=== PATIENT | female | born 1990 | race Caucasian/White ===

== ENCOUNTER 2018-05-19 23:58 | Emergency (ER) | payer OTHER, SELFPAY ==
[2018-05-19 23:59] VITALS: BP 135/89; PULSE 91; RESP 15; TEMP 37.6; O2SAT 95; BMI 29.2
[2018-05-20 00:30] VITALS: BP 133/84; PULSE 69; RESP 18; O2SAT 94
--- NOTE | 2018-05-20 00:31 | DI.RAD.S_ITS ---
PROCEDURE: XR CHEST 1V INDICATIONS: sepsis TECHNIQUE: One view of the chest was acquired. COMPARISON: None. FINDINGS: Surgical changes and devices: None. Lungs and pleura: No pleural effusions or pneumothorax. Lungs are clear. Mediastinum: Mediastinal contours appear normal. Heart size is normal. Bones and chest wall: No suspicious bony lesions. Overlying soft tissues appear unremarkable. IMPRESSION: No acute disease. Dictated by: Harvinder Contreras M.D. on 05/20/2018 at 7:31 Approved by: Harvinder Contreras M.D. on 05/20/2018 at 7:32
--- NOTE | 2018-05-20 00:31 | DI.US.S_ITS ---
PROCEDURE: US PELVIC COMPLETE INDICATIONS: fever, chills, pelvic pain, vag delivery 4 days ago TECHNIQUE: Real-time scanning was performed of the pelvic organs, with image documentation. Additional endovaginal scanning was necessary due to incomplete visualization of the adnexal and endometrial structures by transabdominal scanning. COMPARISON: None. FINDINGS: Preliminary report by [facility] Transabdominal scanning: Limited scanning through the kidneys shows no hydronephrosis. The kidneys measure 12.9 CM right and 12.0 CM left with moderate hydronephrosis in the right kidney, no visible stones. No pathologic free abdominal or pelvic fluid. Endovaginal scanning: Uterus: Uterus is enlarged consistent with status at 8.0 x 8.1 x 18.3 cm. uterine cavity contains echogenic material with no internal blood flow and is distended in the lower uterine segment by the diameter of 2.2 x 3.5 cm ovary is 6.2 cm length Ovaries: The right ovary is not well seen. The left ovary appears normal measuring 25 x 25 x 26 mm. IMPRESSION: 1. uterine enlargement. Distention of the endometrial cavity with retained blood products in the lower uterine segment. 2. Right ovary not seen. Left ovary is normal in size. 3. Moderate right hydronephrosis. 4. No free fluid Findings are concordant with the preliminary report. Dictated by: Jed Centeno M.D. on 05/20/2018 at 7:45 Approved by: Jed Centeno M.D. on 05/20/2018 at 7:53
[2018-05-20 00:40] LABS: Add Manual Diff / Slide Review NO; Basophils Percent Auto 1.2 % (0-2); Eosinophils Percent Auto 4.1 % (2-4); Hematocrit 31.9 % (36-46); Hemoglobin 10.7 g/dL (12.0-16.0); Lymphocytes Percent Auto 19.2 % (25-40); Mean Corpuscular HGB Conc 33.6 % (30-36); Mean Corpuscular Hemoglobin 28.6 PG (26-34); Mean Corpuscular Volume 85.2 fL (80-100); Neutrophils Absolute Auto 6300 /uL (3000-5900); Neutrophils Percent Auto 69.5 % (50-75); Platelet Count 389 X10^3/uL (150-400); Red Blood Cell Count 3.74 X10^6/uL (4.0-5.2); Red Cell Distribution Width 14.5 % (11.6-14.8)
[2018-05-20 00:47] LABS: BUN Creatinine Ratio 12.9 (6-22); Bilirubin Total 0.4 mg/dL (0.2-1.3); Blood Urea Nitrogen 9 mg/dL (7-17); Calcium 9.2 mg/dL (8.4-10.2); Carbon Dioxide 26 mmol/L (22-32); Chloride 102 mmol/L (98-107); Estimated Glomerular Filt Rate > 60.0 mL/min (>60); Glucose 86 mg/dL (70-100); HEMOLYSIS < 15 (0-50); Lactate (Lactic Acid) 1.4 mmol/L (0.7-2.1); Potassium 4.3 mmol/L (3.4-5.1); Sodium 139 mmol/L (137-145)
[2018-05-20] MEDS: CEFTRIAXONE 1 GM/50 ML FROZ.PIGGY IV (00:49)
--- NOTE | 2018-05-20 00:54 | ED.FEVER ---
HPI - Fever General Chief Complaint: Fever Stated Complaint: COLDNESS Time Seen by Provider: 05/20/18 00:00 Source: patient and EMS Mode of arrival: EMS Limitations: no limitations History of Present Illness HPI Narrative: 27-year-old female delivered vaginally 4 days ago at [facility]. Over the past day she has had increasing pelvic pain with some spotting as well as subjective fever and shaking chills. She has nausea but denies any vomiting. She is . She has been otherwise well and free of complaint MD complaint: fever Onset (ago): hour(s) Temperature Source: subjective Context: recent procedure Associated symptoms: chills and rigors Relieving factors: nothing Exacerbating factors: nothing Related Data Home Medications Medication Instructions Recorded Confirmed ibuprofen 400 mg PO TID #0 09/03/17 Previous Rx's Medication Instructions Recorded clindamycin HCl 300 mg PO Q6H #28 cap 08/31/17 amoxicillin-pot clavulanate 875 mg PO BID #14 tab 09/03/17 [Augmentin] cephalexin [Keflex] 500 mg PO QID 7 Days #28 cap 05/20/18 Allergies Allergy/AdvReac Type Severity Reaction Status Date / Time No Known Allergies Allergy Uncoded 02/09/18 12:48 Review of Systems Review of Systems All systems reviewed & are unremarkable except as noted in HPI and below Constitutional Reports chills, Reports fever(s), Denies lethargy and Denies weakness Eyes Denies change in vision, Denies eye discharge, Denies irritation and Denies loss of vision ENT Ears, Nose, Mouth, and Throat: Denies change in voice, Denies neck pain and Denies sore throat Cardiovascular Denies chest pain, Denies irregular heart rhythm, Denies lightheadedness, Denies palpitations, Denies dyspnea, Denies dyspnea on exertion and Denies orthopnea Respiratory Denies cough, Denies dyspnea, Denies dyspnea on exertion and Denies wheezing Gastrointestinal Gastrointestinal: Reports abdominal pain, Denies change in bowel habits, Denies diarrhea, Denies nausea and Denies vomiting Genitourinary Denies hematuria, Reports pelvic pain, Denies flank pain, Denies urinary incontinence and Denies urinary urgency Musculoskeletal Denies neck pain Integumentary/Breasts Denies pruritus, Denies erythema, Denies rash and Denies wounds Neurologic Denies confusion, Denies loss of vision and Denies weakness Psychiatric Denies anxiety, Denies confusion, Denies depression, Denies homicidal ideation and Denies suicidal ideation Endocrine Denies palpitations Hematologic/Lymphatic Denies easy bruising Allergic/Immunologic Denies wheezing [facility] Social History Smoking Status: Never smoker Exam Narrative Exam Narrative: Ill-appearing 27-year-old female, a bit pale on exam and clutching her suprapubic region Initial Vital Signs Initial Vital Signs: Vital Signs Temperature 99.7 F H 05/19/18 23:59 Pulse Rate 91 H 05/19/18 23:59 Respiratory Rate 15 05/19/18 23:59 Blood Pressure 135/89 H 05/19/18 23:59 Pulse Oximetry 95 05/19/18 23:59 Const General: cooperative, well developed and acute distress Nutritional Appearance: well nourished Orientation: alert, awake, oriented x3 and not confused HENMT Head: normocephalic and atraumatic Ears: external ears normal and TM's normal bilaterally Nose: external nose normal and No nasal discharge Face and sinus: sinuses nontender, face symmetric, no sinus tenderness and No dry mucous membranes Mouth: oral mucosae normal and moist mucous membranes Teeth and gingiva: dentition normal Throat: tonsils normal and uvula midline Eyes General: appearance normal, both eyes and all related structures Eyelids: eyelids normal Conjunctivae: conjunctivae normal Sclera: sclerae normal Pupils: PERRL EOM: EOM intact bilaterally Resp Effort & Inspection: normal respiratory effort, able to speak in complete sentences, no respiratory distress and no use of accessory muscles Auscultation: clear to auscultation bilaterally, no rales, no rhonchi and no wheezes Cardio Rate: regular rate Rhythm: regular rhythm Heart Sounds: no click, no gallops, no murmurs and no rubs Pulses: normal peripheral pulses GI Inspection: non-distended Palpation: soft, no hepatosplenomegaly, No guarding, No pulsatile mass and tender (Suprapubic tenderness) Auscultation: normal bowel sounds Skin General: no rashes or lesions noted Lesions: no lesions Neuro General: alert, awake and oriented x3 Cognition: normal cognition Speech: speech normal Extrem General: normal to inspection Right upper extremity: normal to inspection Psych Appearance: grossly normal Course Orders Ordered: ED Orders 05/20/18 00:01 Basic Metabolic Panel Stat Bilirubin Total Stat Complete Blood Count AUTO DIFF Stat Lactate (Lactic Acid) Stat Procalcitonin Stat 05/20/18 00:31 US pelvic complete Stat XR chest 1V Stat 05/20/18 01:00 Blood Culture Stat 05/20/18 02:28 Urine Culture Stat Urine Microscopic Stat Sodium Chloride (Normal Saline 0.9%) 2,177.25 mls @ 725.75 mls/hr 30 ml/kg infuse over 3 hr (2177.25 ml) IV CONT SOWMYA Discontinued Medications Ceftriaxone Sodium/Dextrose (Rocephin) 1 gm in 50 mls @ 100 mls/hr IV NOW ONE Stop: 05/20/18 01:00 Last Infusion: 05/20/18 02:00 Dose: 100 mls/hr Admin: 05/20/18 00:49 Dose: 100 mls/hr Consultations Consultation #1: 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 Paniagua has called back and after discussing patient presentation, ultrasound, blood work and urine we agreed that the patient is most concerning possible diagnosis endometriosis. She recommends Keflex and discharge with follow-up as an outpatient. She request the patient call the office in the morning for early follow-up next week. Time: 03:11 Vital Signs - 8 hr 05/19/18 23:59 05/20/18 00:30 05/20/18 01:43 Temperature 99.7 F H Pulse Rate 91 H 69 66 Respiratory Rate 15 18 15 Blood Pressure 135/89 H Blood Pressure [Right Arm] 133/84 H 103/64 Pulse Oximetry 95 94 97 MDM - Fever Lab Data Result diagrams: 05/20/18 00:01 05/20/18 00:01 Lab Results 05/20/18 05/20/18 05/20/18 Range/Units 00:01 00:01 00:01 WBC 9.0 (4.5-11.0) X10^3/uL RBC 3.74 L (4.0-5.2) X10^6/uL Hgb 10.7 L (12.0-16.0) g/dL Hct 31.9 L (36-46) % MCV 85.2 (80-100) fL MCH 28.6 (26-34) PG MCHC 33.6 (30-36) % RDW 14.5 (11.6-14.8) % Plt Count 389 (150-400) X10^3/uL Neut % (Auto) 69.5 (50-75) % Lymph % (Auto) 19.2 L (25-40) % [place] % (Auto) 6.0 (3-14) % Eos % (Auto) 4.1 H (2-4) % Baso % (Auto) 1.2 (0-2) % Neut # (Auto) 6300 H (9623-4839) /uL Sodium 139 (137-145) mmol/L Potassium 4.3 (3.4-5.1) mmol/L Chloride 102 (98-107) mmol/L Carbon Dioxide 26 (22-32) mmol/L BUN 9 (7-17) mg/dL Creatinine 0.70 (0.52-1.04) mg/dL Estimated GFR > 60.0 (>60) mL/min BUN/Creatinine Ratio 12.9 (6-22) Glucose 86 (70-100) mg/dL Lactate (0.7-2.1) mmol/L Calcium 9.2 (8.4-10.2) mg/dL Total Bilirubin 0.4 (0.2-1.3) mg/dL Procalcitonin < 0.05 (<0.5) ng/mL Urine RBC (0-5/HPF) Urine WBC (0-5/HPF) Ur Squamous Epith Cells Ur Transition Epith Cell (0-5/HPF) Urine Bacteria (None) Ur Culture Indicated? Micro UA Comment 05/20/18 05/20/18 Range/Units 00:01 02:28 WBC (4.5-11.0) X10^3/uL RBC (4.0-5.2) X10^6/uL Hgb (12.0-16.0) g/dL Hct (36-46) % MCV (80-100) fL MCH (26-34) PG MCHC (30-36) % RDW (11.6-14.8) % Plt Count (150-400) X10^3/uL Neut % (Auto) (50-75) % Lymph % (Auto) (25-40) % [place] % (Auto) (3-14) % Eos % (Auto) (2-4) % Baso % (Auto) (0-2) % Neut # (Auto) (2750-7554) /uL Sodium (137-145) mmol/L Potassium (3.4-5.1) mmol/L Chloride (98-107) mmol/L Carbon Dioxide (22-32) mmol/L BUN (7-17) mg/dL Creatinine (0.52-1.04) mg/dL Estimated GFR (>60) mL/min BUN/Creatinine Ratio (6-22) Glucose (70-100) mg/dL Lactate 1.4 (0.7-2.1) mmol/L Calcium (8.4-10.2) mg/dL Total Bilirubin (0.2-1.3) mg/dL Procalcitonin (<0.5) ng/mL Urine RBC 10-30/hpf H (0-5/HPF) Urine WBC 5-10/hpf H (0-5/HPF) Ur Squamous Epith Cells None seen Ur Transition Epith Cell 1-5/hpf (0-5/HPF) Urine Bacteria None seen (None) Ur Culture Indicated? Specimen cultured Micro UA Comment Not Reportable Imaging Data US Pelvic: Radiologist's impression: Heterogeneous material in the uterus most consistent with blood products. No evidence of retained products of conception, moderate hydronephrosis of the right kidney Discharge Plan Departure Patient Disposition: Home, Self-Care Clinical Impression: Acute endometritis, UTI (urinary tract infection) Instructions: DI for Endometritis Activity Restrictions/Additional Instructions: *You have been diagnosed with [ acute endometritis possible UTI ] *What to do: *Take medications as directed, this antibiotic is safe for a breast-feeding mother. 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 Let them know you were seen in the Emergency Department and that we ask that you be seen in follow up *Return to ER if you should have any new, worsening or concerning symptoms, such as [ increasing pain, vaginal discharge, persistent vomiting or other bothersome symptoms] Prescriptions: New cephalexin [Keflex] 500 mg capsule 500 mg PO QID 7 Days Qty: 28 RF: 0 No Action clindamycin HCl 300 MG capsule 300 mg PO Q6H Qty: 28 RF: 0 ibuprofen 400 MG tablet 400 mg PO TID Qty: 0 RF: 0 amoxicillin-pot clavulanate [Augmentin] 875 MG/125 MG tablet 875 mg PO BID Qty: 14 RF: 0
[2018-05-20 01:11] LABS: Procalcitonin < 0.05 ng/mL (<0.5)
[2018-05-20 01:34] VITALS: BP 135/89; PULSE 66; RESP 15; TEMP 37.6; O2SAT 97; BMI 29.2
[2018-05-20 01:43] VITALS: BP 103/64; PULSE 66; RESP 15; O2SAT 97
--- NOTE | 2018-05-20 02:07 | ED_ITS ---
HPI - Fever General Chief Complaint: Fever Stated Complaint: COLDNESS Time Seen by Provider: 05/20/18 00:00 Source: patient and EMS Mode of arrival: EMS Limitations: no limitations History of Present Illness HPI Narrative: 27-year-old female delivered vaginally [facility] days ago at [facility]. Over the past day she has had increasing pelvic pain with some spotting as well as subjective fever and shaking chills. She has nausea but denies any vomiting. She is . She has been otherwise well and free of complaint MD complaint: fever Onset (ago): hour(s) Temperature Source: subjective Context: recent procedure Associated symptoms: chills and rigors Relieving factors: nothing Exacerbating factors: nothing Related Data Home Medications Medication Instructions Recorded Confirmed ibuprofen 400 mg PO TID #0 09/03/17 Previous Rx's Medication Instructions Recorded clindamycin HCl 300 mg PO Q6H #28 cap 08/31/17 amoxicillin-pot clavulanate 875 mg PO BID #14 tab 09/03/17 [Augmentin] cephalexin [Keflex] 500 mg PO QID 7 Days #28 cap 05/20/18 Allergies Allergy/AdvReac Type Severity Reaction Status Date / Time No Known Allergies Allergy Uncoded 02/09/18 12:48 Review of Systems Review of Systems All systems reviewed & are unremarkable except as noted in HPI and below Constitutional Reports chills, Reports fever(s), Denies lethargy and Denies weakness Eyes Denies change in vision, Denies eye discharge, Denies irritation and Denies loss of vision ENT Ears, Nose, Mouth, and Throat: Denies change in voice, Denies neck pain and Denies sore throat Cardiovascular Denies chest pain, Denies irregular heart rhythm, Denies lightheadedness, Denies palpitations, Denies dyspnea, Denies dyspnea on exertion and Denies orthopnea Respiratory Denies cough, Denies dyspnea, Denies dyspnea on exertion and Denies wheezing Gastrointestinal Gastrointestinal: Reports abdominal pain, Denies change in bowel habits, Denies diarrhea, Denies nausea and Denies vomiting Genitourinary Denies hematuria, Reports pelvic pain, Denies flank pain, Denies urinary incontinence and Denies urinary urgency Musculoskeletal Denies neck pain Integumentary/Breasts Denies pruritus, Denies erythema, Denies rash and Denies wounds Neurologic Denies confusion, Denies loss of vision and Denies weakness Psychiatric Denies anxiety, Denies confusion, Denies depression, Denies homicidal ideation and Denies suicidal ideation Endocrine Denies palpitations Hematologic/Lymphatic Denies easy bruising Allergic/Immunologic Denies wheezing [facility] Social History Smoking Status: Never smoker Exam Narrative Exam Narrative: Ill-appearing 27-year-old female, a bit pale on exam and clutching her suprapubic region Initial Vital Signs Initial Vital Signs: Vital Signs Temperature 99.7 F H 05/19/18 23:59 Pulse Rate 91 H 05/19/18 23:59 Respiratory Rate 15 05/19/18 23:59 Blood Pressure 135/89 H 05/19/18 23:59 Pulse Oximetry 95 05/19/18 23:59 Const General: cooperative, well developed and acute distress Nutritional Appearance: well nourished Orientation: alert, awake, oriented x3 and not confused HENMT Head: normocephalic and atraumatic Ears: external ears normal and TM's normal bilaterally Nose: external nose normal and No nasal discharge Face and sinus: sinuses nontender, face symmetric, no sinus tenderness and No dry mucous membranes Mouth: oral mucosae normal and moist mucous membranes Teeth and gingiva: dentition normal Throat: tonsils normal and uvula midline Eyes General: appearance normal, both eyes and all related structures Eyelids: eyelids normal Conjunctivae: conjunctivae normal Sclera: sclerae normal Pupils: PERRL EOM: EOM intact bilaterally Resp Effort & Inspection: normal respiratory effort, able to speak in complete sentences, no respiratory distress and no use of accessory muscles Auscultation: clear to auscultation bilaterally, no rales, no rhonchi and no wheezes Cardio Rate: regular rate Rhythm: regular rhythm Heart Sounds: no click, no gallops, no murmurs and no rubs Pulses: normal peripheral pulses GI Inspection: non-distended Palpation: soft, no hepatosplenomegaly, No guarding, No pulsatile mass and tender (Suprapubic tenderness) Auscultation: normal bowel sounds Skin General: no rashes or lesions noted Lesions: no lesions Neuro General: alert, awake and oriented x3 Cognition: normal cognition Speech: speech normal Extrem General: normal to inspection Right upper extremity: normal to inspection Psych Appearance: grossly normal Course Orders Ordered: ED Orders 05/20/18 00:01 Basic Metabolic Panel Stat Bilirubin Total Stat Complete Blood Count AUTO DIFF Stat Lactate (Lactic Acid) Stat Procalcitonin Stat 05/20/18 00:31 US pelvic complete Stat XR chest 1V Stat 05/20/18 01:00 Blood Culture Stat 05/20/18 02:28 Urine Culture Stat Urine Microscopic Stat Sodium Chloride (Normal Saline 0.9%) 2,177.25 mls @ 725.75 mls/hr 30 ml/kg infuse over 3 hr (2177.25 ml) IV CONT SOWMYA Discontinued Medications Ceftriaxone Sodium/Dextrose (Rocephin) 1 gm in 50 mls @ 100 mls/hr IV NOW ONE Stop: 05/20/18 01:00 Last Infusion: 05/20/18 02:00 Dose: 100 mls/hr Admin: 05/20/18 00:49 Dose: 100 mls/hr Consultations Consultation #1: 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 Paniagua has called back and after discussing patient presentation, ultrasound, blood work and urine we agreed that the patient is most concerning possible diagnosis endometriosis. She recommends Keflex and discharge with follow-up as an outpatient. She request the patient call the office in the morning for early follow-up next week. Time: 03:11 Vital Signs - 8 hr 05/19/18 23:59 05/20/18 00:30 05/20/18 01:43 Temperature 99.7 F H Pulse Rate 91 H 69 66 Respiratory Rate 15 18 15 Blood Pressure 135/89 H Blood Pressure [Right Arm] 133/84 H 103/64 Pulse Oximetry 95 94 97 MDM - Fever Lab Data Result diagrams: 05/20/18 00:01 05/20/18 00:01 Lab Results 05/20/18 05/20/18 05/20/18 Range/Units 00:01 00:01 00:01 WBC 9.0 (4.5-11.0) X10^3/uL RBC 3.74 L (4.0-5.2) X10^6/uL Hgb 10.7 L (12.0-16.0) g/dL Hct 31.9 L (36-46) % MCV 85.2 (80-100) fL MCH 28.6 (26-34) PG MCHC 33.6 (30-36) % RDW 14.5 (11.6-14.8) % Plt Count 389 (150-400) X10^3/uL Neut % (Auto) 69.5 (50-75) % Lymph % (Auto) 19.2 L (25-40) % [place] % (Auto) 6.0 (3-14) % Eos % (Auto) 4.1 H (2-4) % Baso % (Auto) 1.2 (0-2) % Neut # (Auto) 6300 H (5447-9275) /uL Sodium 139 (137-145) mmol/L Potassium 4.3 (3.4-5.1) mmol/L Chloride 102 (98-107) mmol/L Carbon Dioxide 26 (22-32) mmol/L BUN 9 (7-17) mg/dL Creatinine 0.70 (0.52-1.04) mg/dL Estimated GFR > 60.0 (>60) mL/min BUN/Creatinine Ratio 12.9 (6-22) Glucose 86 (70-100) mg/dL Lactate (0.7-2.1) mmol/L Calcium 9.2 (8.4-10.2) mg/dL Total Bilirubin 0.4 (0.2-1.3) mg/dL Procalcitonin < 0.05 (<0.5) ng/mL Urine RBC (0-5/HPF) Urine WBC (0-5/HPF) Ur Squamous Epith Cells Ur Transition Epith Cell (0-5/HPF) Urine Bacteria (None) Ur Culture Indicated? Micro UA Comment 05/20/18 05/20/18 Range/Units 00:01 02:28 WBC (4.5-11.0) X10^3/uL RBC (4.0-5.2) X10^6/uL Hgb (12.0-16.0) g/dL Hct (36-46) % MCV (80-100) fL MCH (26-34) PG MCHC (30-36) % RDW (11.6-14.8) % Plt Count (150-400) X10^3/uL Neut % (Auto) (50-75) % Lymph % (Auto) (25-40) % [place] % (Auto) (3-14) % Eos % (Auto) (2-4) % Baso % (Auto) (0-2) % Neut # (Auto) (8028-2639) /uL Sodium (137-145) mmol/L Potassium (3.4-5.1) mmol/L Chloride (98-107) mmol/L Carbon Dioxide (22-32) mmol/L BUN (7-17) mg/dL Creatinine (0.52-1.04) mg/dL Estimated GFR (>60) mL/min BUN/Creatinine Ratio (6-22) Glucose (70-100) mg/dL Lactate 1.4 (0.7-2.1) mmol/L Calcium (8.4-10.2) mg/dL Total Bilirubin (0.2-1.3) mg/dL Procalcitonin (<0.5) ng/mL Urine RBC 10-30/hpf H (0-5/HPF) Urine WBC 5-10/hpf H (0-5/HPF) Ur Squamous Epith Cells None seen Ur Transition Epith Cell 1-5/hpf (0-5/HPF) Urine Bacteria None seen (None) Ur Culture Indicated? Specimen cultured Micro UA Comment Not Reportable Imaging Data US Pelvic: Radiologist's impression: Heterogeneous material in the uterus most consistent with blood products. No evidence of retained products of conception , moderate hydronephrosis of the right kidney Discharge Plan Departure Patient Disposition: Home, Self-Care Clinical Impression: Acute endometritis, UTI (urinary tract infection) Instructions: DI for Endometritis Activity Restrictions/Additional Instructions: *You have been diagnosed with [ acute endometritis possible UTI ] *What to do: *Take medications as directed, this antibiotic is safe for a breast- feeding mother. Your prescription has been electronically transmitted to the [employer] [facility] [employer] at your request *Follow up with your maintenance controller, call later for an appointment. Let them know you were seen in the Emergency Department and that we ask that you be seen in follow up *Return to ER if you should have any new, worsening or concerning symptoms , such as [ increasing pain, vaginal discharge, persistent vomiting or other bothersome symptoms] Prescriptions: New cephalexin [Keflex] 500 mg capsule 500 mg PO QID 7 Days Qty: 28 RF: 0 No Action clindamycin HCl 300 MG capsule 300 mg PO Q6H Qty: 28 RF: 0 ibuprofen 400 MG tablet 400 mg PO TID Qty: 0 RF: 0 amoxicillin-pot clavulanate [Augmentin] 875 MG/125 MG tablet 875 mg PO BID Qty: 14 RF: 0
[2018-05-20 03:00] LABS: Bacteria Urine None Seen
[2018-05-20 03:12] LABS: RBC Urine 10-30/HPF (0-5/HPF); WBC Urine 5-10/HPF (0-5/HPF)
[2018-05-20 03:13] LABS: Culture Indicated Urine Specimen Cultured; Squamous Epithelial Cell Urine None Seen; Transitional Epi Cells Urine 1-5/HPF (0-5/HPF)
--- NOTE | 2018-05-20 03:37 | PC.NURSE ---
Pt had vaginal baby delivery 4 days ago. woke up at 2330 with chills and shivers. Pt denies pain, states she is still bleeding vaginally filling less than a pad an hour.
[2018-05-20] MEDS: SODIUM CHLORIDE 0.9% 2,177.25 ML 725.75 ML IV (04:00)
--- NOTE | 2018-05-21 05:02 | PC.NURSE ---
Pt received 2 L NS unable to scan.
== END 2018-05-20 03:26 | disposition home or self-care (01) ==
PROVIDERS: Emergency Provider Emergency Medicine
DX: N71.0 Acute inflammatory disease of uterus (principal); N39.0 Urinary tract infection, site not specified
CPT/HCPCS: 36415; 36591; 71045; 76830; 76856; 80048; 81003; 81015; 82247; 83605; 84145; 85025; 87040; 87086; 96365; 99283; 99284